=== PATIENT | female | born 1970 | race Caucasian/White ===

== ENCOUNTER 2016-11-29 22:10 | Emergency (ER) | payer OTHER ==
[~2016-11-29] VITALS: Ht 160 cm; Wt 70.0 kg
[~2016-11-29 22:10] MED LIST: ESTR1PAT39 TD; GABA300T24 PO; VICODIN 5-3251 EACH PO; ZOC20 PO
[2016-11-29 22:16] VITALS: BP 156/121; PULSE 119; RESP 20; O2SAT 96
[2016-11-29] MEDS ORDERED: 0.9% Sodium Chloride 1,000 ML IV ONE ×2 (22:51→23:35)
--- NOTE | 2016-11-29 22:51 | ED.REPORT ---
HPI-Abd Pain F 40 and Over Date of Service Nov 29, 2016 ED Provider: Ms. London is a 45 y/o woman who presents today for right lower flank and RLQ pain that started at 8:00 PM and has progressively worsened. It is a sharp, severe pain. She is unable to get into a comfortable position. She has a history of medullary sponge kidney disease. She has had kidney stones in the past before multiple times. She has had several ureter stents and lithotripsies. No hematuria, dysuria, urinary urgency, or urinary frequency. Normal bowel movement earlier today. No hematochezia or melena. Nursing Notes Stated Complaint: R SIDE PAIN Chief Complaint: Female Abdominal Pain Nursing Notes Reviewed: Yes Allergies: Coded Allergies: Pineapple (Verified Allergy, Severe, hives, facial swelling, 03/25/13) Scheduled Estradiol/Levonorgestrel (Climara Pro Patch) 1 Patch.wk Patch.tdwk 1 PATCH.WK TD once a week Gabapentin (Gralise) 300 Mg Tab.er.24h 300 MG PO DAILY Hydrocod/APAP-Expunged, Do Not Renew! (VICODIN 5/325-Expunged Drug, Do Not Renew ) 1 Each Tablet 1-2 TAB PO Q6HP Simvastatin-Expunged Drug, Choose New Med! (Simvastatin-Expunged Drug, Choose New Med!) 20 Mg Tablet 20 MG PO HS General Time Seen by MD: 22:50 Chief Complaint Abdominal pain Hx Obtained From: Patient Sudden in Onset?: Yes Past Medical History Past Medical History medullary sponge kidney disease Past Surgical History hysterectomy breast reduction Smoking History Current Every Day Smoker Social History Alcohol Use: Denies alcohol use Drug Use: Denies drug use Review of Systems Constitutional: Denies: Chills, Fever Respiratory: Denies: Shortness of breath Cardiovascular: Denies: Chest pain GI: Reports: Abdominal pain, Nausea, Vomiting, Denies: Constipation, Diarrhea, Hematemesis, Hematochezia Female: Reports: Flank pain, Denies: Dysuria, Hematuria, Urinary frequency, Urinary urgency, Vaginal bleeding - abnl, Vaginal discharge Musculoskeletal: Denies: Neck pain Physical Exam Vital Signs Vital Signs (First) Date Time Temp Pulse Resp B/P Pulse Ox O2 Delivery O2 Flow Rate FiO2 11/29/16 22:16 36.6 119 20 156/121 96 Room Air Initial VS: Reviewed Head / Eyes: Atraumatic, Normocephalic, PERRL ENT: Mucous membranes moist, Conjunctiva normal, No scleral icterus Neck: Supple, Non-tender, Full range of motion Lymphatic: No lymphadenopathy Extremities: Vascular intact, Neuro intact, No swelling, No tenderness Skin: Warm, Dry, No cyanosis Neurologic: Alert, Oriented, Nonfocal Psychiatric: Mood/affect normal, Behavior normal, Normal thought content General/Constitutional: Awake, Alert Distress / Hydration: Positive: Distress moderate Abdomen: Soft, No guarding, No rebound, BS normoactive, No distention, No hernia, No palpable mass, No pulsatile mass Tenderness/Guarding/Rebound: Positive: Tender RLQ... (Moderate), Tender flank R , Negative: Tender flank L Trauma - Abdomen Specific: Negative: Emil's sign, Melendez Strong's sign, Seat belt sign Interpretation & Diagnostics Interpretation & Diagnostics: CT KUB shows numerous bilateral nephrolithiasis, right hydronephrosis, a cluster of 3-4 calculi ranging 3-5 mm in size on the right Lab Results Interpretation Result Diagram: 11/29/16 2245 11/29/16 2245 Test 11/29/16 22:45 11/29/16 23:39 11/30/16 00:01 White Blood Count 21.3th/mm3 (3.8-10.1) Red Blood Count 5.02mil/mm3 (3.90-5.20) Hemoglobin 15.0g/dL (12.0-15.6) Hematocrit 44.5% (35.0-46.0) Mean Corpuscular Volume 88.6fL (81-100) Mean Corpuscular Hemoglobin 29.9pg (27.0-35.0) Mean Corpuscular Hemoglobin Concent 33.7% (32.0-37.0) Red Cell Distribution Width 13.8% (12.3-15.4) Platelet Count 274bil/L (150-400) Neutrophils (%) (Auto) 80.8% (40-74) Lymphocytes (%) (Auto) 13.6% (14-46) Monocytes (%) (Auto) 4.2% (4-12) Eosinophils (%) (Auto) 1.0% (0-5) Basophils (%) (Auto) 0.1% (0-3) Sodium Level 137mEq/L (134-144) Potassium Level 4.0mEq/L (3.5-5.2) Chloride Level 101mEq/L (97-108) Carbon Dioxide Level 20mmol/L (18-29) Blood Urea Nitrogen 16mg/dL (6-24) Creatinine 0.94mg/dL (0.57-1.00) Estimat Glomerular Filtration Rate 91mL/min (>59) Glucose Level 142mg/dL (60-99) Lactic Acid Level 2.1mmol/L (0.4-2.0) Calcium Level 9.5mg/dL (8.5-10.1) Magnesium Level 1.8mg/dL (1.6-2.6) Total Bilirubin 0.4mg/dL (0.0-1.2) Aspartate Amino Transf (AST/SGOT) 18U/L (0-50) Alanine Aminotransferase (ALT/SGPT) 18U/L (0-32) Alkaline Phosphatase 113U/L (25-150) Total Protein 7.3g/dL (6.4-8.4) Albumin 4.3g/dL (3.4-5.0) Lipase 53U/L (13-60) Hold Melendez Top Tube Received (Received) Hold Urine Received (Received) Urine Color Straw (YELLOW) Urine Appearance Clear (CLEAR,HAZY) Urine pH 6.0 (5.0-8.0) Urine Specific Mcgregor 1.010 (1.003-1.035) Urine Protein Negativemg/dL (NEG,TRACE) Urine Glucose (UA) Negativemg/dL (NEGATIVE) Urine Ketones Negativemg/dL (NEGATIVE) Urine Occult Blood Small (NEGATIVE) Urine Nitrite Negative (NEGATIVE) Urine Bilirubin Negative (NEGATIVE) Urine Urobilinogen Normalmg/dL (NORMAL) Urine Leukocyte Esterase Small (NEGATIVE) Urine RBC 3-10/hpf (0-2) Urine WBC 6-10/hpf (0-5) Urine Epithelial Cells Few/hpf (NONE-MOD) Urine Crystals None seen (NONE SEEN) Urine Bacteria None/hpf (NONE-FEW) Urine Hyaline Casts None/lpf (NONE) Urine Granular Casts None seen (NONE SEEN) Urine Waxy Casts None seen (NONE SEEN) Urine Red Blood Cell Casts None seen (NONE SEEN) Urine White Blood Cell Casts None seen (NONE SEEN) Urine Mucus None seen (None Seen) Urine Trichomonas None seen (NONE SEEN) Urine Yeast None (NONE SEEN) Urine Culture Reflexed Indicated Re-Eval/Medical Decision Med Decision/Clinical Course 1. right flank and abdominal pain -Pt has history of nephrolithiasis and medullary sponge kidney -Elevated WBC and mildly elevated lactic acid -Pt given 2 liters of normal saline, 0.4 mg Flomax, and 2 g Rocephin in the ED - Pt also given Zofran, Dilaudid, and toradol as needed Re-Evaluation/Progress : Time of Eval: 01:01 Patient Status: Pain improved Re-Evaluation/Progress Note: Pt is no acute distress and she reports that her pain is greatly improved. DDx: kidney stone, UTI, pyelonephritis, appendicitis, diverticulitis, gastroenteritis, constipation, ruptured abdominal aortic aneurysm, colitis Discharge & Departure Primary Impression: Ureterolithiasis Additional Impressions: Nephrolithiasis Medullary sponge kidney Hydroureter Disposition: Home Discharge Condition All VS Reviewed: Yes Condition: Stable Patient Instructions: Renal Colic (ED) Additional Instructions: You have for stones blocking your distal left ureter. These are 3-5 mm and will likely pass. It is possible you have an associated urinary tract infection , culture pending. Drink plenty of fluids. Flomax 0.4 mg daily for 3 or 4 days. Ibuprofen as needed. Hydrocodone/acetaminophen 5/325, one or 2 pills every 4-6 hours as needed for severe pain, #10 dispensed. Ondansetron (Zofran) 4 mg dissolved orally 4 times a day as needed for nausea and vomiting, #4 dispensed. Use these 10-15 minutes before your antibiotic and/or pain medication dosage. Cephalexin (Keflex) 500 mg by mouth 3 times a day when necessary, #30 dispensed. Strain your urine so he can see when the stone passes. Follow up with the urologist if the stones do not pass in 3-4 days. Referrals: aGrret Root MD (PCP) [facility] Attending Statement The patient was seen and examined together with Dr. Guerline Crawford and I agree with the history, exam and plan as outlined in the note above. Kendall Mcmillan MD Nov 29, 2016 22:51 Guerline Crawford DO Nov 29, 2016 23:06
[2016-11-29] MEDS ORDERED: Ondansetron 2 mg/mL 2 mL Inj IVPUSH PRN (22:55)
[2016-11-29 22:59] LABS: BASOPHILS % (AUTO) 0.1 % (0-3); MONOCYTES % (AUTO) 4.2 % (4-12); Mean Corpuscular Hemoglobin 29.9 pg (27.0-35.0); Mean Corpuscular Volume 88.6 fL (81-100); NEUTROPHILS % (AUTO) 80.8 % (40-74); Platelet Count 274 bil/L (150-400)
[2016-11-29] MEDS: HYDROmorphone 0.5 mg/0.5 mL iSecure Syringe IVPUSH PRN (23:13)
[2016-11-29 23:23] LABS: Magnesium 1.8 mg/dL (1.6-2.6)
[2016-11-29 23:49] VITALS: BP 112/78; PULSE 99; RESP 17; O2SAT 94
[2016-11-30] MEDS: HYDROmorphone 0.5 mg/0.5 mL iSecure Syringe IVPUSH PRN (00:32)
[2016-11-30 00:57] LABS: APPEARANCE,URINE CLEAR (CLEAR,HAZY); COLOR,URINE STRAW (YELLOW); OCCULT BLOOD,URINE SMALL (NEGATIVE); UROBILINOGEN,URINE NORMAL (NORMAL)
[2016-11-30] MEDS ORDERED: cefTRIAXone Inj 2 GM in IV Premix 1 EACH IV ONE (01:25)
[2016-11-30] MEDS ORDERED: cefTRIAXone Inj 2,000 MG in IV Premix 1 EACH IV ONE (01:27)
[2016-11-30] MEDS ORDERED: _Ondansetron ODT 4 mg Tablet PO PRN (02:20)
[2016-11-30] MEDS ORDERED: _HYDROcodone/APAP 5-325 mg Tablet PO PRN (02:20)
[2016-11-30 03:02] VITALS: BP 116/72; PULSE 98; RESP 18; O2SAT 95
[2016-11-30] MEDS ORDERED: _Cephalexin 500 mg Capsule PO SCH (08:30)
--- NOTE | 2016-11-30 08:46 | DRSVH ---
PROCEDURE: CT KUB ([id number]) INDICATIONS: right lower quadrant and right flank pain TECHNIQUE: Noncontrast 5 mm thick sections acquired from the diaphragms to the symphysis. 5 mm thick coronal an d sagittal reformats were then performed. For radiation dose reduction, the following was used: aut omated exposure control, adjustment of mA and/or kV according to patient size. COMPARISON: [facility], CR, KUB XRAY (1 VIEW ABDOMEN), 11/09/2013, 13:43. Outside Facility, RG, CT ABDOMEN/PELVIS WITHOUT CONTRAST, 04/29/2012, 9:08. [facility], CT, KIDNEY/ URETER/BLADDER, , 11:04. FINDINGS: Image quality: Excellent. Lung bases: Lung bases are clear. Heart size is normal. Urinary system: There are multiple renal calculi bilaterally. Calcification in renal medulla bilater ally is consistent with medullary sponge kidney. There is a cluster of 3 stones in the distal right u reter approximately 2.5 cm above the uterovesical junction, measuring up to 8 mm. The stones demonstr ate CT density 669-995 HU. There is moderate right hydronephrosis and hydroureter. No left hydronephr osis. Mild right perinephric fat stranding is present. Bladder wall thickness is normal; no calcifie d bladder stones. Other solid organs: Liver and spleen are normal in size. No gallstones. There are foci of calcificat ions in gallbladder wall. Pancreas is normal in contours. No adrenal nodules. Peritoneum and bowel: Unenhanced bowel loops demonstrate normal wall thickness and caliber. Scatter ed colonic diverticula. No active diverticulitis. No free fluid or air. Nodes and vessels: No retroperitoneal or mesenteric adenopathy by size criteria. Aorta and inferior vena cava are normal in caliber. Abdominal wall: No ventral hernias. Pelvis: No free pelvic fluid. No inguinal hernias or adenopathy. Bones: No suspicious bony lesions. No vertebral body compression fractures. IMPRESSION: 1. Obstructive distal right ureteral calculi causing moderate right hydronephrosis and hydroureter. 2. Medullary sponge kidneys and bilateral renal calculi. 3. Calcification of gallbladder wall. 4. Colonic diverticulosis. No active diverticulitis. No significant discrepancy with the night assistant radiology preliminary report. Dictated by: Cristopher De Jesus M.D. on 11/30/2016 at 8:19 Approved by: Cristopher De Jesus M.D. on 11/30/2016 at 8:45
== END 2016-11-30 03:03 | disposition home or self-care (01) ==
LOC: SED 22:10
DX: N13.2 Hydronephrosis with renal and ureteral calculous obstruction (principal); Q61.5 Medullary cystic kidney; F17.200 Nicotine dependence, unspecified, uncomplicated; Z91.018 Allergy to other foods
CPT/HCPCS: 36415; 74176; 80053; 81000; 81025; 83605; 83690; 83735; 85025; 87086; 96361; 96365; 96375; 96376; 99285; J0696; J1170; J2405; J7030

== ENCOUNTER 2016-12-04 13:27 | Day surgery (SDC) | payer OTHER ==
[2016-12-04] VITALS (10 sets, daily range): BP systolic 115–170; BP diastolic 60–101; PULSE 70–90; RESP 14–18; O2SAT 93–96
[~2016-12-04] VITALS: Ht 160 cm; Wt 73.0 kg
[~2016-12-04 13:27] MED LIST changes: +Lactated Ringer's 1,000 ML IV ONE
[2016-12-04] MEDS ORDERED: Propofol 10,000 mCg/mL 20 mL Inj ONE ×2 (13:28)
[2016-12-04] MEDS ORDERED: Succinylcholine Chloride 20 mg/mL 5 mL Inj ONE (13:28)
[2016-12-04] MEDS ORDERED: MetoCLOpramide 5 mg/mL 2 mL Inj ONE (13:28)
[2016-12-04] MEDS ORDERED: Dexamethasone 4 mg/mL Inj ONE ×2 (13:28)
[2016-12-04] MEDS ORDERED: Ondansetron 2 mg/mL 2 mL Inj ONE ×2 (13:28)
[2016-12-04] MEDS ORDERED: fentaNYL-PF 50 mCg/mL 2 mL Inj ONE (13:28)
--- NOTE | 2016-12-04 17:03 | PCM.HPANE ---
Patient Data Surgeon Admitting Provider: Attending Provider:Jeannette Loen MD Primary Care Physician:Maggie Other Provider:Arden Rosario Anesthesia Reason for Visit Right Ureteral Stone Ht/WT & BMI Height (Feet): 5 Height (Inches): 3 Weight (Kilograms): 73 Body Mass Index 0.00 Allergies Coded Allergies: pineapple (Verified Allergy, Severe, hives, facial swelling, 12/04/16) Past Anesthesia History Anesthesia History: Positive for:: Anesthesia Reactions (n/v), Denies:: Abnormal Airway, Difficult Intubation, Fam Anesthesia Reaction, Fam Malignant Hypertherm, Malignant Hyperthermia Diabetes History Hx Diabetes?: No MRSA MRSA: No Medications Home Meds Incl Beta Michael: No Discontinued Reported Medications Hydrocod/APAP-Expunged, Do Not Renew! (VICODIN 5/325-Expunged Drug, Do Not Renew )1 Each Tablet1-2 Tab PO Q6HP #20 TAB 03/25/13 Gabapentin (Gralise)300 Mg Tab.er.29q020 Mg PO DAILY 06/03/12 Simvastatin-Expunged Drug, Choose New Med! 20 Mg Ixzefq10 Mg PO HS 06/03/12 Estradiol/Levonorgestrel (Climara Pro Patch)1 Patch.wk Patch.tdwk1 Patch.wk TD once a week 06/03/12 History History of ENT Problems?: No HEENT History: Denies:: Abnormal Airway Difficult Intubation Dysphagia Hearing Problem Sinus Problem Hx of Heart Problems?: Yes Cardiovascular History: Denies:: Atrial Fibrillation Chest Pain Congestive Heart Failure Edema Heart Murmur Hypertension (HYPERLIPIDEMIA) Irregular Heartbeat Pacemaker Hx of Respiratory Problem?: No Respiratory History: Denies:: Asthma COPD Cough Dyspnea Emphysema Hemoptysis Oxygen Administration Pulmonary Embolism Tuberculosis Use of C-PAP Machine Hx Neurologic Problems?: No Neurological History: Denies:: Dizziness Headaches Multiple Sclerosis Parkinson's Disease Seizures Hx of GI Problems?: No Gastrointestinal History: Denies:: Cirrhosis Gastroesphageal Reflux Gastrointestinal Bleeding Heartburn Hepatitis Hiatal Hernia Rectal Bleeding Hx of Problems?: Yes Genitourinary History: Positive for:: Kidney Stones (S/P MULT LITHOTRIPSIES LT STONE=CURRENT PROBLEM) Denies:: HX of Hemodialysis HX of Peritoneal Dialysis: No Female Hx: Positive for:: Problems with Breasts? (S/P BILAT BREAST REDUCTION) Denies:: Currently Skin History: Denies:: History Skin Disorders? Pressure Ulcers Hx Musculoskeletal Problems?: No Musculoskeletal History: Denies:: Back Injury Degenerative Joint Joint Replacement Hx of Psycho/Social Problems?: No Psycho Social History: Denies:: Anxiety Bipolar Disorder Hx Depression Hx Surgeries?: Yes (breast reduction, hysterectomy, lithotripsy bilateral, NEPHROSTOMY TUBE) Hx Any Other Health Problems?: Yes Other History: Positive for:: Hospitalization Denies:: Cancer Endocrine Disease Thyroid Disease History Blood Transfusions: Denies:: Blood Transfusions Hx Diabetes: No Hx Alcohol Use: NoHx Substance Use: No Smoking Status: Current Every Day Smoker Have You Smoked inLast 12 mo: Yes Stop/Bang Risk Assessment Category Category 1A: Patient has history of documented sleep apnea, and HAS NOT received any narcotic, sedative or anesthesia administration during this stay. Category 1B: Patient has history of documented sleep apnea, and HAS received any narcotic , sedative or anesthesia administration during this stay Category 2: Patient has SUSPECTED Obstructive Sleep Apnea, and HAS received any narcotic , sedative or anesthesia administration during this stay. Category 3: Patient has SUSPECTED Obstructive Sleep Apnea and HAS NOT received narcotic, sedative or anesthesia administration during this stay. Category 4: Outpatient in Procedural Areas with known sleep apnea or who screen positive for High Risk via the STOP/BANG questionnaire. Exam Exam Vital Signs Vital Signs Date Time Temp Pulse Resp B/P Pulse Ox O2 Delivery O2 Flow Rate FiO2 12/04/16 12:14 36.5 79 18 170/101 96 Room Air General Appearance: Alert, Oriented X3, Cooperative, No Acute Distress HEENT/AIRWAY: MP 2, Neck Movement (FROM), Mouth Opening (3 FBMO) Lungs: Clear to Auscultation, Normal Air Movement Heart: Exam Unremarkable, Regular Rate/Rhythm, No Murmurs/Rubs/Gallops Meds/Labs/Diagnostics Admission Meds Current Medications Lactated Ringer's (Lr) 1,000 ml @ ud STK-MED ONCE IV Last administered on 12/04t 13:12; Start 12/04/16 at 13:12; Stop 12/04/16 at 13:13; Status DC Plan Impression Patient chart reviewed, patient interviewed and anesthestic plan with risks, benefits, and alternatives discussed, and informed consent obtained. NPO Status: 0800 12/04 ASA Physical Status: ASA2 Mod Systemic Disease Anesthetic Plan: GA Bene/Risks/Altern/Consents: Yes HP Complete Prior to Induction: Yes Robe Palomino MD Dec 04, 2016 16:22
[2016-12-04] MEDS ORDERED: Lactated Ringer's 500 ML IV PRN (17:53)
[2016-12-04] MEDS ORDERED: Lactated Ringer's 1,000 ML IV SCH (17:53)
[2016-12-04] MEDS ORDERED: Labetalol 5 mg/mL 4 mL Inj IV PRN (17:55)
[2016-12-04] MEDS ORDERED: hydrALAZINE 20 mg/mL Inj IVPUSH PRN (17:55)
[2016-12-04] MEDS ORDERED: Belladonna Alk-Opium 60 mg Rectal Suppository RECTAL ONE ×2 (17:55→18:39)
[2016-12-04] MEDS ORDERED: EPHEDrine Sulfate 50 mg/mL Inj IVPUSH PRN (17:55)
[2016-12-04] MEDS ORDERED: Atropine 0.4 mg/mL Inj IVPUSH PRN (17:55)
[2016-12-04] MEDS ORDERED: fentaNYL-PF 50 mCg/mL 2 mL Inj IVPUSH PRN (17:55)
[2016-12-04] MEDS ORDERED: Phenylephrine 10,000 mCg/mL Inj IVPUSH PRN (17:55)
[2016-12-04] MEDS ORDERED: Ondansetron 2 mg/mL 2 mL Inj IVPUSH PRN (17:55)
[2016-12-04] MEDS ORDERED: HYDROmorphone 1 mg/mL Inj IVPUSH PRN (17:55)
[2016-12-04] MEDS ORDERED: MetoCLOpramide 5 mg/mL 2 mL Inj IVPUSH PRN (17:55)
[2016-12-04] MEDS ORDERED: Furosemide 10 mg/mL 2 mL Inj IV ONE (18:45)
--- NOTE | 2016-12-04 19:02 | PCM.ANEP2 ---
Post Anesthesia Evaluation ASA/CMS Post Anesthesia VS in Patient's Normal Range?: Yes Resp Stable; Airway Patent?: Yes CV Function & Hydration Stable: Yes Mental Status Recovered?: Yes Pain control Satisfactory?: Yes N/V Control Satisfactory?: Yes Robe Palomino MD Dec 04, 2016 19:02
--- NOTE | 2016-12-04 19:02 | PCM.ANEP1 ---
Post Anesthesia Phase 1 PACU Phase 1 Assessment Vital Signs Vital Signs Date Time Temp Pulse Resp B/P Pulse Ox O2 Delivery O2 Flow Rate FiO2 12/04/16 12:14 36.5 79 18 170/101 96 Room Air Anesthetic Administered: GA Level of Alertness: Awake, talking PONCE's with Equal Strength: Yes Pain: No Nausea or Vomiting: No Oxygen Delivery: Simple Mask Lungs: Clear to Auscultation, Normal Air Movement Dermatome Level: Full Sensation Robe Palomino MD Dec 04, 2016 19:02
--- NOTE | 2016-12-04 20:38 | OP ---
[address] [address] OPERATIVE REPORT PATIENT: NICOLASA LEMOS : 1970 MR#: [id number] ADMIT: 12/04/2016 JOB ID: [id number] DATE OF SURGERY: 12/04/2016 PREOPERATIVE DIAGNOSIS(ES): 1. Obstructing right distal ureteral calculi x3 (8 mm, 5 mm, 3 mm). 2. Bilateral medullary sponge kidney. 3. Nephrolithiasis. 4. History of recurrent nephrolithiasis. 5. Intractable right renal colic. POSTOPERATIVE DIAGNOSIS(ES): 1. Obstructing right distal ureteral calculi x3 (8 mm, 5 mm, 3 mm). 2. Bilateral medullary sponge kidney. 3. Nephrolithiasis. 4. History of recurrent nephrolithiasis. 5. Intractable right renal colic. OPERATION PERFORMED: 1. Cystoscopy. 2. Right ureteroscopic laser lithotripsy. 3. Placement of right ureteral stent. SURGEON: Jeannette Leon MD ANESTHESIOLOGIST: Robe Peace MD ANESTHESIA: General. FINDINGS: Urethra normal. Orifices were normal bilaterally. The above-described stones were encountered in their expected area just above the right ureterovesical junction. PROCEDURE SUMMARY: The patient was positioned in semilithotomy and lower abdomen, genitalia, and groin were prepped and draped in sterile fashion. The 22-Nauruan panendoscope was then passed to the lower urinary tract with the findings as described above. Next, a 0.35 Glidewire was advanced to the right collecting system under direct fluoroscopic guidance. Over this, a 15-Nauruan x 6 cm balloon dilating catheter was positioned across the right ureterovesical junction. The balloon was inflated to 18 atmospheres for 5 minutes after which the balloon was deflated and all instrumentation was backloaded off the Glidewire. Next, the semi-rigid ureteroscope was advanced to the lower urinary tract and then into the right collecting system alongside the Glidewire. The stones were encountered in a similar position to that seen in CT KUB. The 273 micron laser fiber was then selected. The patient and all operating room personnel were fitted with laser safety eyewear. The laser lithotripsy was then commenced with excellent subsequent fragmentation. The stones were broken down into small fragments. The scope was then advanced to the level of the ureteropelvic junction on two occasions and hydro irrigation and gentle agitation with movement of the scope was employed to clear the entire ureter of all fragments. There was a significant amount of ureteral mucosa erosion and edema in the vicinity of the distal ureter and juncture with the right ureterovesical junction. Therefore, the semirigid ureteroscope was removed and the Glidewire was then front-loaded on the 22-Nauruan panendoscope and a 6-Nauruan x 22-32 multilength stent was advanced over the Glidewire and positioned satisfactorily in the right collecting system under direct and fluoroscopic guidance. A RETRIEVAL LINE WAS LEFT ATTACHED. The bladder was then drained completely. All instrumentation was removed a final time. The patient was repositioned supine, awakened, transferred to [facility], and transferred to recovery in stable condition. She tolerated the procedure well.
--- OUTSIDE RECORDS SUMMARY | 2016-12-06 08:19 | XMS | Continuity of Care Document ---
Author Author [facility] Address Unknown Phone Unavailable Care Team Providers Care Field Services Manager Name Role Phone Garret Root MD Unavailable Insurance Providers Payer Name Policy Number Subscriber Name Relationship RICARDO PRIME [id number] TIMUR LEMOS Spouse Advance Directives Directive Response Recorded Date/Time Code Status Full code 12/03/16 9:43pm Do You Have an Advanced Directive for Health Care? N 12/03/16 10:12pm If No:+ Pt. declined information 12/03/16 10:12pm Chief Complaint and Reason for Visit Reason for Visit SAYS HAS A KIDNEY STONE Problems Active Medical Problems Problem Onset Date Recorded Date Status Kidney stones Unknown 12/03/16 Active Medications Current Home Medications Medication Dose Units Route Directions Days/Qty Instructions Start Date Cephalexin (KEFLEX) 500 MG CAPSULE 500 MG ORAL HYDROCODONE/ACETAMINOPHEN (Vicodin) 5 MG/300 MG TABLET Ondansetron (ZOFRAN ODT) 8 MG TAB.RAPDIS 4 MG ORAL 3 times daily PHENAZOPYRIDINE HCL (PYRIDIUM) (Unknown Strength) TABLET Unknown Dose Tamsulosin Hydrochloride (FLOMAX) 0.4 MG CAP.ER.24H 0.4 MG ORAL Every day Social History Problem Response Recorded Date Street drug use? N 12/03/16 Alcohol Use? N 12/03/16 Support sources:+ Family, local 12/03/16 Able to participate in own care? Y 12/03/16 Have help at home after discharge? Y 12/03/16 Prior to this admission, the patient lived:+ WITH FAMILY 12/03/16 Query Response Start Date Stop Date Smoking status:+ Current every day smoker Hospital Discharge Instructions No hospital discharge instructions. Plan of Care Discharge Date 12/04/16 Disposition [facility] (02) Instructions/Education Provided [facility] ED Information Forms Provided Nursing info - General Prescriptions See Medications Section Functional Status Query Response Date Recorded Mobility:+ Independent December 04, 2016 10:43am Allergies, Adverse Reactions, Alerts Allergen Type Severity Reaction Status Last Updated pineapple Allergy Severe HIVES, THROAT SWELLS UP Active 12/03/16 Immunizations Name Date Given Type Influenza? (Seasonal)+ No Historical Vital Signs Vital Reading Collection Date/Time Result Blood Pressure 12/04/16 8:00am 124/78 Patient Temperature 12/04/16 8:00am 97.7 Temperature Source 12/04/16 5:44am ORAL Respiratory Rate 12/04/16 8:00am 14 Pulse Rate 12/04/16 8:00am 76 Pulse Location 12/04/16 5:44am MONITOR Bedside Pulse Oximetry 12/04/16 8:30am 98 Height 12/04/16 5:44am 5 ft 3 in 160.02 cm Weight 12/04/16 5:44am 161 lb 73.2 kg Body Mass Index 12/04/16 5:44am 28.6 kg/m2 Results Laboratory Results Test Name Result Units Flags Reference Collection Date/Time Result Date/ Time Comments Blood Urea Nitrogen 15.0 mg/dL 7-17 12/04/16 5:34am 12/04/16 6:39am Creatinine 1.00 mg/dL 0.52-1.04 12/04/16 5:34am 12/04/16 6:39am Estimated GFR (MDRD) >60.0 mL/min >60 12/04/16 5:34am 12/04/16 6:39am ESTIMATED GFR: TO ESTIMATE THE GLOMERULAR FILTRATION RATE FOR - AMERICANS, MULTIPLY THE RESULTS PROVIDED BY 1.21. ESTIMATED GFR (EGFR) VALUES <60 ml/min/1.73m2 ARE INDICATIVE OF CHRONIC KIDNEY DISEASE. BUN/Creatinine Ratio 15.0 5.8-27.8 12/04/16 5:12/04/16 6:39am Calcium Level 8.8 mg/dL 8.4-10.2 12/04/16 5:12/04/16 6:39am Glucose Level 71 mg/dL L 79-115 12/04/16 5:12/04/16 6:39am Sodium Level 142 mmol/L 137-145 12/04/16 5:12/04/16 6:39am Potassium Level 4.0 mmol/L 3.5-5.1 12/04/16 5:12/04/16 6:39am Chloride Level 106.0 mmol/L 98-107 12/04/16 5:12/04/16 6:39am Carbon Dioxide Level 28.0 mmol/L -12/04/16 5:12/04/16 6:39am Alkaline Phosphatase 102 U/L 38-126 12/03/16 8:25pm 12/03/16 8:44pm Total Bilirubin 0.7 mg/dL 0.2-1.3 12/03/16 8:25pm 12/03/16 8:44pm Total Protein 7.3 g/dL 6.3-8.2 12/03/16 8:25pm 12/03/16 8:44pm Albumin 4.3 g/dL 3.5-5.0 12/03/16 8:25pm 12/03/16 8:44pm Globulin 3.0 g/dL 1.7-4.1 12/03/16 8:25pm 12/03/16 8:44pm Albumin/Globulin Ratio 1.4 1-2.8 12/03/16 8:25pm 12/03/16 8:44pm Aspartate Amino Transf (AST/SGOT) 22 IU/L 14-36 12/03/16 8:25pm 8:44pm Alanine Aminotransferase (ALT/SGPT) 32 IU/L 9-52 12/03/16 8:25pm 8:44pm White Blood Count 12.3 X10^3/uL H 4.5-11 12/03/16 8:25pm 12/03/16 8: 38pm Red Blood Count 5.16 X10^6/uL 4.0-5.2 12/03/16 8:25pm 12/03/16 8:38pm Hemoglobin 15.2 G/DL 12-16 12/03/16 8:25pm 12/03/16 8:38pm Hematocrit 45.1 % 36-46 12/03/16 8:25pm 12/03/16 8:38pm Mean Corpuscular Volume 87.3 FL 80-100 12/03/16 8:25pm 12/03/16 8:38pm Mean Corpuscular Hemoglobin 29.5 PG 26-34 12/03/16 8:25pm 12/03/16 8: 38pm Mean Corpuscular Hemoglobin Concent 33.8 % 31-37 12/03/16 8:25pm 8:38pm Red Cell Distribution Width 13.6 % 11.6-14.8 12/03/16 8:25pm 12/03/16 8 :38pm Platelet Count 247 X10^3/uL 150-400 12/03/16 8:25pm 12/03/16 8:38pm Neutrophils % 63.6 % 50-75 12/03/16 8:25pm 12/03/16 8:38pm Absolute Neutrophil 7800 /uL H 1428-9566 12/03/16 8:25pm 12/03/16 8: 38pm Lymphocytes % 30.3 % 25-40 12/03/16 8:25pm 12/03/16 8:38pm Monocytes % 3.4 % 3-14 12/03/16 8:25pm 12/03/16 8:38pm Eosinophils % 1.9 % L 2-4 12/03/16 8:25pm 12/03/16 8:38pm Basophils % 0.8 % 0-2 12/03/16 8:25pm 12/03/16 8:38pm Urine Color YELLOW 12/03/16 5:45pm 12/03/16 5:53pm Urine Appearance CLEAR 12/03/16 5:45pm 12/03/16 5:53pm Urine Specific [place] 1.010 1.000-1.035 12/03/16 5:45pm 12/03/16 5: 53pm Urine pH 6.5 4.5-8.0 12/03/16 5:45pm 12/03/16 5:53pm Urine Protein NEGATIVE NEGATIVE 12/03/16 5:45pm 12/03/16 5:53pm Urine Glucose (UA) NORMAL NORMAL 12/03/16 5:45pm 12/03/16 5:53pm Urine Ketones NEGATIVE NEGATIVE 12/03/16 5:45pm 12/03/16 5:53pm Urine Urobilinogen 0.2 NORMAL 12/03/16 5:45pm 12/03/16 5:53pm Urine Bilirubin NEGATIVE NEGATIVE 12/03/16 5:45pm 12/03/16 5:53pm Urine Blood NEGATIVE NEGATIVE 12/03/16 5:45pm 12/03/16 5:53pm Urine Leukocyte Esterase TRACE H NEGATIVE 12/03/16 5:45pm 12/03/16 5: 53pm Urine Nitrite NEGATIVE NEGATIVE 12/03/16 5:45pm 12/03/16 5:53pm Urine WBC 1-5/HPF 1-5/HPF 12/03/16 5:45pm 12/03/16 6:06pm Urine Bacteria OCC (0-1) NONE 12/03/16 5:45pm 12/03/16 6:06pm Urine Culture Indicated SPECIMEN CULTURED 12/03/16 5:45pm 12/03/16 6:06pm Urine will only be cultured if it meets one or more of the following criteria: (a) Specifically requested by the provider (b) Greater than 5 WBC's with <5 epithelial cells/hpf. (c) Positive nitrite. (Only if <5 epithelial cells/hpf). (d) Positive leukocyte esterase. (Only if <5 epithelial cells/hpf). NOTE: Greater than 5 epithelial cells/hpf indicates contamination which is not suitable for culture. Microbiology Results Procedure Source Result Collection Date/Time Result Date/Time Urine Culture Reflex From Urinalysis Spec. No growth. 12/03/16 5:45pm 7:47am Procedures No Known History of Procedures. Encounters Encounter Location Arrival/Admit Date Discharge/Depart Date Attending Provider Discharged [facility] 12/03/16 5:13pm 12/04/16 11:30am Jeannette Leon MD Encounter Diagnosis Onset Date Kidney stones
[2016-12-11 09:13] LABS: Stone Color Tan (.)
== END 2016-12-04 23:59 | disposition home or self-care (01) ==
LOC: SAS 13:27
PROVIDERS: ATTEND Specialist
DX: N20.2 Calculus of kidney with calculus of ureter (principal); Q61.5 Medullary cystic kidney; N23 Unspecified renal colic; E78.5 Hyperlipidemia, unspecified; F17.210 Nicotine dependence, cigarettes, uncomplicated; Z87.442 Personal history of urinary calculi
CPT/HCPCS: 52356; 76000; 82360; C2617; J0330; J1100; J1940; J2175; J2405; J2765; J3010; J7120

== ENCOUNTER 2017-02-27 08:04 | Emergency (ER) | payer OTHER ==
[~2017-02-27] VITALS: Ht 160 cm; Wt 70.5 kg
[2017-02-27 08:10] VITALS: BP 149/100; PULSE 102; RESP 24; O2SAT 99
[2017-02-27] MEDS ORDERED: 0.9% Sodium Chloride 1,000 ML IV ONE (09:06)
[2017-02-27] MEDS ORDERED: Ondansetron 2 mg/mL 2 mL Inj IVPUSH ONE (09:10)
[2017-02-27] MEDS ORDERED: HYDROmorphone 1 mg/mL Inj IVPUSH ONE (09:15)
[2017-02-27] MEDS: HYDROmorphone 0.5 mg/0.5 mL iSecure Syringe IVPUSH PRN ×2 (09:16→10:52)
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
[2017-02-27 09:31] LABS: BASOPHILS % (AUTO) 0.2 % (0-3); EOSINOPHILS % (AUTO) 0.6 % (0-5); MONOCYTES % (AUTO) 3.5 % (4-12); NEUTROPHILS % (AUTO) 81.6 % (40-74); Platelet Count 291 bil/L (150-400)
[2017-02-27 10:07] LABS: Magnesium 1.9 mg/dL (1.6-2.6)
[2017-02-27] MEDS ORDERED: ONDA8TAB10 PO (11:16)
[2017-02-27] MEDS ORDERED: OXYC1TAB24 PO (11:16)
[2017-02-27 11:39] VITALS: BP 97/61; PULSE 84; RESP 15; O2SAT 94
--- NOTE | 2017-02-27 13:12 | DRSVH ---
PROCEDURE: US RENAL SONOGRAM INDICATIONS: Flank pain, ho stones, ro obstruction TECHNIQUE: Real-time scanning was performed of the kidneys and bladder, with image documentation. COMPARISON: [facility], CT, CT KUB, 11/30/2016, 0:37. FINDINGS: Kidneys: Kidneys are normal in size. Right kidney measures 10.4 cm long; left kidney measures 1.7 c m long. Right renal cortical thickness is 0.9 cm; left renal cortical thickness is 1.1 cm. Renal co rtical echotexture is normal. Multiple stones are present bilaterally as was seen on previous CT sca n. There is mild left hydronephrosis. The left ureter is not visualized. Bladder: Urinary bladder decompressed and suboptimally visualized. Miscellaneous: No free pelvic fluid. IMPRESSION: 1. Multiple bilateral renal calcifications redemonstrated and mild hydronephrosis seen involving the left kidney on today's study. Ureteral calculus cannot be excluded. If indicated CT KUB could be pe rformed. 2. 3. Urinary bladder is not well-distended and suboptimally visualized. Dictated by: Dayne Birch [facility] Interpreted: Kelle Lindo MD on 02/27/2017 at 13:08 Transcribed by: SHARON on 02/27/2017 at 13:11 Approved by: Kelle Lindo MD, PhD on 02/27/2017 at 14:23
== END 2017-02-27 11:40 | disposition home or self-care (01) ==
LOC: SED 08:04
DX: N20.1 Calculus of ureter (principal); Q61.5 Medullary cystic kidney; F17.200 Nicotine dependence, unspecified, uncomplicated; Z90.710 Acquired absence of both cervix and uterus; Z87.442 Personal history of urinary calculi
CPT/HCPCS: 36415; 76770; 80053; 81025; 83690; 83735; 85025; 96374; 96375; 96376; 99285; J1170; J1885; J2405; J7030